=== PATIENT | female | born 1995 | race African-American/Black ===

== ENCOUNTER 2021-08-13 23:05 | Emergency (ER) | payer OTHER, SELFPAY ==
--- NOTE | ~2021-08-13 | US_ITS ---
EXAMINATION: US OBSTETRICAL ULTRASOUND CLINICAL INFORMATION: Positive . Pelvic pain. COMPARISON: None. LMP: 05/30/2021. Gestational age by maternal dates is 10 weeks 6 days. Estimated date of delivery by maternal dates is 03/06/2022. TECHNIQUE: Transabdominal sonographic evaluation of the pelvis. FINDINGS: There is a single intrauterine gestational sac with visible yolk sac, embryo/fetus, and cardiac activity. Small subchorionic hemorrhage measuring 1.5 x 1 x 0.7 cm. HR: 165 beats per minute. CRL (crown rump length): 2.28 cm (9 weeks 0 days +/- 4 days). RAFAEL (estimated date of delivery): 03/19/2022 +/- 4 days. MATERNAL ADNEXA: The right maternal ovary measures 3.5 x 2.2 x 3 cm. 2.5 cm corpus luteal cyst. The left maternal ovary measures 3.7 x 1.7 x 2.8 cm. There is no significant maternal adnexal mass. No maternal pelvic ascites. US/US OB <= 14 weeks fetus IMPRESSION: 1. Single intrauterine gestation with ultrasound gestational age of 9 weeks 0 days +/- 4 days. 2. Estimated date of delivery is 03/19/2022 +/- 4 days. 3. Small subchorionic hemorrhage noted.
[2021-08-13 23:53] VITALS: BP 97/45; PULSE 63; RESP 18; TEMP 36.7; O2SAT 98; BMI 31.1
--- NOTE | 2021-08-14 00:57 | ED.PREGNANCY ---
HPI - General Chief complaint: Vaginal Bleeding Stated complaint: 3months with pressure Time Seen by Provider: 08/13/21 23:40 Source: patient Mode of arrival: ambulatory History of Present Illness HPI Narrative: 26-year-old female , LMP 05/31 and has not been evaluated by an lead manufacturing engineer at this time who presents with lower abdominal/pelvic cramping for the past week and a half without associated fever, chills, nausea, vomiting, or diarrhea but states that she has had urinary frequency and some burning. She otherwise denies any vaginal discharge or vaginal bleeding. Related Data Previous Rx's Medication Instructions Recorded nitrofurantoin 100 mg PO Q12H 7 days #14 caps 08/14/21 monohydrate/macrocrystals 100 mg capsule (Macrobid) Allergies Allergy/AdvReac Type Severity Reaction Status Date / Time penicillin V Allergy Unknown Verified 09/25/16 00:00 Penicillins [PENICILLINS] Allergy Unknown HIVES Unverified 10/23/19 16:44 Sulfa (Sulfonamide Allergy Unknown UNKNOWN Unverified 10/23/19 16:44 Antibiotics) [SULFA (SULFONAMIDE ANTIBIOTICS)] COD FISH Allergy Unknown RASH Uncoded 10/23/19 16:44 Review of Systems Review of Systems: Pertinent positives and negatives as stated in HPI 10 point review systems otherwise negative. [facility] Past Medical History Source: nursing notes reviewed Social History Social History Advance Directives: No Physical Exam Vital Signs: Vital Signs: Last Vital Signs Temp 98.1 F 08/13/21 23:53 Pulse 63 08/13/21 23:53 Resp 18 08/13/21 23:53 BP 97/45 L 08/13/21 23:53 Pulse Ox 98 08/13/21 23:53 O2 Del Method 08/13/21 23:53 BMI result Body Mass Index 31.1 VITAL SIGNS: Reviewed. GENERAL: Well developed, well nourished, in no acute distress. HEAD: Normocephalic/atraumatic EYES: PERRLA, EOMI EARS: Ext canals without abnormality OROPHARYNX: no oral lesions noted, posterior pharynx clear LUNGS: Normal breath sounds. No adventitious sounds or accessory muscle use. SpO2<98> CARDIOVASCULAR: Regular rate and rhythm without noted murmurs ABDOMEN: Soft, non-tender, non-distended with bowel sounds. MUSCULOSKELETAL: No tenderness, deformities, or effusions noted on gross inspection. EXTREMITIES: No cyanosis, clubbing or edema. SKIN: Inspection of the skin reveals no rashes NEUROLOGIC: Alert and oriented x 4. Strength and sensation to light touch were grossly intact x 4. Course Course Course Narrative: 26-year-old female with history and clinical presentation suggestive of possible UTI, lower clinical suspicion for ectopic but will rule this out. Review of all investigations demonstrates normal OB ultrasound with IUP, small subchorionic hemorrhage, and patient does have a UTI for which she received initial antibiotics. MDM - OB/Uterine Contractions Lab Data Result diagrams: 08/14/21 01:05 08/14/21 01:05 Labs: Lab Results 08/14/21 08/14/21 08/14/21 Range/Units 01:05 01:05 01:05 WBC 9.2 (4.8-10.8) X10*3/uL RBC 3.93 L (4.20-5.50) X10*6/uL Hgb 12.2 (12.0-16.0) g/dl Hct 35.5 L (37.0-47.0) % MCV 90.3 (80.0-98.0) fL MCH 31.0 (27.0-33.0) pg MCHC 34.4 (31.0-35.0) g/dl RDW 11.9 (11.0-16.0) % Plt Count 285 (160-400) X10*3/uL MPV 10.1 (9.4-12.3) fL Immature Gran % (Auto) 0.3 (0.0-0.4) % Neut % (Auto) 78.7 H (45-73) % Lymph % (Auto) 13.4 L (20-40) % [place] % (Auto) 6.3 (2-11) % Eos % (Auto) 1.0 (0-4) % Baso % (Auto) 0.3 (0-2) % Lymph # (Auto) 1.2 (1.2-4.9) X10*3/uL [place] # (Auto) 0.6 (0.1-1.2) X10*3/uL Eos # (Auto) 0.1 (0.0-0.4) X10*3/uL Baso # (Auto) 0.0 (0.0-0.2) X10*3/uL Abs Immat Gran (auto) 0.03 (0.00-0.03) X10*3/uL Absolute Neuts (auto) 7.2 (2.0-8.3) x10*3/uL Absolute Nucleated RBC 0.000 (0.0-0.012) X10*3/uL Nucleated RBC % (auto) 0.0 (0.0-0.2) /100WBC Sodium 135 (135-145) mmol/L Potassium 4.0 (3.3-5.1) mmol/L Chloride 102 (96-108) mmol/L Carbon Dioxide 27 (22-29) mmol/L Anion Gap 10 L (12-20) BUN 6 L (9-16) mg/dL Creatinine 0.71 (0.5-1.4) mg/dL Estim Creat Clear Calc 116.5 Estimated GFR > 60 Random Glucose 116 H (60-115) mg/dL Calcium 9.4 (8.4-10.2) mg/dL Total Bilirubin < 0.2 (0.0-1.0) mg/dL AST 19 (5-31) U/L ALT 13 (0-31) U/L Alkaline Phosphatase 51 (39-117) U/L Total Protein 6.7 (6.5-8.0) g/dL Albumin 3.9 (3.5-5.0) g/dL Beta HCG, Quant 53350 mIU/mL Urine Color DK YELLOW Urine Appearance HAZY Urine pH 6.5 (5.0-8.0) Ur Specific [place] 1.025 (1.005-1.025) Urine Protein NEG (NEG-TRACE) MG/DL Urine Glucose (UA) 250 H (NEG) MG/DL Urine Ketones NEG (NEG) MG/DL Urine Blood NEG (NEG) Urine Nitrite POS H (NEG) Ur Leukocyte Esterase NEG (NEG) Urine RBC 0 (0) /HPF Urine WBC 0-2 (0-4) /HPF Ur Squamous Epith Cells 2+ /LPF Urine Bacteria 4+ /LPF Urine Test (NEGATIVE) 08/14/21 Range/Units 01:05 WBC (4.8-10.8) X10*3/uL RBC (4.20-5.50) X10*6/uL Hgb (12.0-16.0) g/dl Hct (37.0-47.0) % MCV (80.0-98.0) fL MCH (27.0-33.0) pg MCHC (31.0-35.0) g/dl RDW (11.0-16.0) % Plt Count (160-400) X10*3/uL MPV (9.4-12.3) fL Immature Gran % (Auto) (0.0-0.4) % Neut % (Auto) (45-73) % Lymph % (Auto) (20-40) % [place] % (Auto) (2-11) % Eos % (Auto) (0-4) % Baso % (Auto) (0-2) % Lymph # (Auto) (1.2-4.9) X10*3/uL [place] # (Auto) (0.1-1.2) X10*3/uL Eos # (Auto) (0.0-0.4) X10*3/uL Baso # (Auto) (0.0-0.2) X10*3/uL Abs Immat Gran (auto) (0.00-0.03) X10*3/uL Absolute Neuts (auto) (2.0-8.3) x10*3/uL Absolute Nucleated RBC (0.0-0.012) X10*3/uL Nucleated RBC % (auto) (0.0-0.2) /100WBC Sodium (135-145) mmol/L Potassium (3.3-5.1) mmol/L Chloride (96-108) mmol/L Carbon Dioxide (22-29) mmol/L Anion Gap (12-20) BUN (9-16) mg/dL Creatinine (0.5-1.4) mg/dL Estim Creat Clear Calc Estimated GFR Random Glucose (60-115) mg/dL Calcium (8.4-10.2) mg/dL Total Bilirubin (0.0-1.0) mg/dL AST (5-31) U/L ALT (0-31) U/L Alkaline Phosphatase (39-117) U/L Total Protein (6.5-8.0) g/dL Albumin (3.5-5.0) g/dL Beta HCG, Quant mIU/mL Urine Color Urine Appearance Urine pH (5.0-8.0) Ur Specific [place] (1.005-1.025) Urine Protein (NEG-TRACE) MG/DL Urine Glucose (UA) (NEG) MG/DL Urine Ketones (NEG) MG/DL Urine Blood (NEG) Urine Nitrite (NEG) Ur Leukocyte Esterase (NEG) Urine RBC (0) /HPF Urine WBC (0-4) /HPF Ur Squamous Epith Cells /LPF Urine Bacteria /LPF Urine Test POSITIVE H (NEGATIVE) Discharge Plan Discharge Clinical Impression: Urinary tract infection affecting Patient Disposition: Home, Self-Care Instructions: (ED), Urinary Tract Infection in (ED) Additional Instructions: 1. Continue to drink plenty of fluids and take daily vitamins. 2. You have a UTI, please complete the entire course of antibiotics as prescribed. Recommend [id number] Tylenol as needed for pain control, at this time avoid all ibuprofen. 3. Keep your scheduled appointment with your OB. Return to the ER for worsening symptoms. ULTRASOUND 1. Single intrauterine gestation with ultrasound gestational age of? 9 weeks 0 days +/- 4 days. 2. Estimated date of delivery is 03/19/2022 +/- 4 days. 3. Small subchorionic hemorrhage noted. Prescriptions: New nitrofurantoin monohyd/m-cryst [Macrobid] 100 mg capsule 100 mg PO Q12H 7 Days Qty: 14 0RF Rx Instructions: must administer with a meal/food
[2021-08-14 01:15] LABS: MANUAL DIFF FLAG NO
[2021-08-14 01:16] LABS: UPreg QC Valid YES; Urine Pregnancy POSITIVE (NEGATIVE)
[2021-08-14 01:17] LABS: Appearance Urine HAZY; Color Urine DK YELLOW; Glucose Urine UA 250 MG/DL (NEG); Leukocyte Esterase Urine NEG (NEG); Nitrite Urine POS (NEG); PH 6.5 (5.0-8.0); Specific Gravity - Urine 1.025 (1.005-1.025); UACC Culture Trigger YES; Urine Blood NEG (NEG); Urine Ketones NEG (NEG); Urine Protein NEG (NEG-TRACE)
[2021-08-14 01:21] LABS: Bacteria Urine 4+ /LPF; Basophils Percent Auto 0.3 % (0-2); Eosinophils Absolute Auto 0.1 X10*3/uL (0.0-0.4); Hematocrit 35.5 % (37.0-47.0); Hemoglobin 12.2 g/dl (12.0-16.0); Imm Gran Abs Auto 0.03 X10*3/uL (0.00-0.03); Imm Gran Pct Auto 0.3 % (0.0-0.4); Lymphocytes Absolute Auto 1.2 X10*3/uL (1.2-4.9); Lymphocytes Percent Auto 13.4 % (20-40); Mean Corpuscular HGB Conc 34.4 g/dl (31.0-35.0); Mean Corpuscular Volume 90.3 fL (80.0-98.0); Mean Platelet Volume 10.1 fL (9.4-12.3); Monocytes Absolute Auto 0.6 X10*3/uL (0.1-1.2); Monocytes Percent Auto 6.3 % (2-11); Neutrophils Absolute Auto 7.2 x10*3/uL (2.0-8.3); Neutrophils Percent Auto 78.7 % (45-73); Platelet Count 285 X10*3/uL (160-400); RBC Urine 0 /HPF (0); Red Blood Count 3.93 X10*6/uL (4.20-5.50); Red Cell Distribution Width 11.9 % (11.0-16.0); Squamous Epithelial Cell Urine 2+ /LPF; WBC Urine 0-2 /HPF (0-4); White Blood Count 9.2 X10*3/uL (4.8-10.8)
[2021-08-14 01:40] LABS: Alanine Aminotransferase 13 U/L (0-31); Albumin Level 3.9 g/dL (3.5-5.0); Alkaline Phosphatase 51 U/L (39-117); Anion Gap 10 (12-20); Aspartate Amino Transferase 19 U/L (5-31); Bilirubin Total < 0.2 mg/dL (0.0-1.0); Blood Urea Nitrogen 6 mg/dL (9-16); Calcium 9.4 mg/dL (8.4-10.2); Carbon Dioxide 27 mmol/L (22-29); Chloride 102 mmol/L (96-108); Creatinine Clr Calc Pharmacy 116.5; Estimated Glomerular Filt Rate > 60; Glucose Random 116 mg/dL (60-115); Sodium 135 mmol/L (135-145); Total Protein 6.7 g/dL (6.5-8.0)
[2021-08-14 03:18] VITALS: BP 98/50; PULSE 65; RESP 18; TEMP 36.9; O2SAT 100
[2021-08-14] MEDS: Nitrofurantoin Monohyd/M-Cryst 100 MG CAPSULE PO (03:25)
== END 2021-08-14 03:19 | disposition home or self-care (01) ==
PROVIDERS: Emergency Provider Student in an Organized Health Care Education/Training Program
DX: N39.0 Urinary tract infection, site not specified (principal); O23.41 Unspecified infection of urinary tract in pregnancy, first trimester; O26.891 Other specified pregnancy related conditions, first trimester; R10.30 Lower abdominal pain, unspecified; Z3A.09 9 weeks gestation of pregnancy
CPT/HCPCS: 36415; 76801; 80053; 81001; 81025; 84702; 85025; 87086; 87088; 87186; 99283; 99284

== ENCOUNTER 2021-11-01 13:42 | Emergency (ER) | payer OTHER, SELFPAY ==
[2021-11-01 14:13] VITALS: BP 111/47; PULSE 77; RESP 18; TEMP 36.9; O2SAT 98; BMI 32.9
[2021-11-01 14:38] LABS: Basophils Percent Auto 0.1 % (0-2); Eosinophils Absolute Auto 0.1 X10*3/uL (0.0-0.4); Eosinophils Percent Auto 0.9 % (0-4); Hematocrit 31.6 % (37.0-47.0); Hemoglobin 10.5 g/dl (12.0-16.0); Imm Gran Abs Auto 0.04 X10*3/uL (0.00-0.03); Imm Gran Pct Auto 0.5 % (0.0-0.4); Lymphocytes Absolute Auto 1.1 X10*3/uL (1.2-4.9); Lymphocytes Percent Auto 13.6 % (20-40); MANUAL DIFF FLAG NO; Mean Corpuscular HGB Conc 33.2 g/dl (31.0-35.0); Mean Corpuscular Hemoglobin 31.2 pg (27.0-33.0); Mean Corpuscular Volume 93.8 fL (80.0-98.0); Mean Platelet Volume 10.6 fL (9.4-12.3); Monocytes Absolute Auto 0.6 X10*3/uL (0.1-1.2); Monocytes Percent Auto 7.1 % (2-11); Neutrophils Absolute Auto 6.2 x10*3/uL (2.0-8.3); Neutrophils Percent Auto 77.8 % (45-73); Platelet Count 227 X10*3/uL (160-400); Red Blood Count 3.37 X10*6/uL (4.20-5.50); Red Cell Distribution Width 12.9 % (11.0-16.0); White Blood Count 7.9 X10*3/uL (4.8-10.8)
[2021-11-01 14:51] LABS: Anion Gap 15 (12-20); Blood Urea Nitrogen 6 mg/dL (9-16); Calcium 8.6 mg/dL (8.4-10.2); Carbon Dioxide 20 mmol/L (22-29); Chloride 107 mmol/L (96-108); Creatinine Clr Calc Pharmacy 144.2; Estimated Glomerular Filt Rate > 60; Glucose Random 83 mg/dL (60-115); Potassium 4.1 mmol/L (3.3-5.1); Sodium 138 mmol/L (135-145)
--- NOTE | 2021-11-01 22:48 | PC.NURSE ---
per registration, pt LWT at 5pm however returned and required to re-entered/re-registered in the system. raw products director to remove this profile as pt with new triage in the WR.
== END 2021-11-01 17:00 | disposition left against medical advice (07) ==
PROVIDERS: Emergency Provider Emergency Medicine
DX: R10.9 Unspecified abdominal pain (principal); Z79.899 Other long term (current) drug therapy
CPT/HCPCS: 36415; 80048; 85025; 99281; 99283

== ENCOUNTER 2021-11-01 22:26 | Emergency (ER) | payer OTHER, SELFPAY ==
[2021-11-01 22:35] VITALS: BP 124/48; PULSE 79; RESP 17; TEMP 36.8; O2SAT 99; BMI 32.9
[2021-11-02 02:08] VITALS: BP 110/42; PULSE 64; RESP 17; TEMP 36.5; O2SAT 99
[2021-11-02 02:22] LABS: Appearance Urine Clear; Color Urine Yellow; Glucose Urine UA Negative (Negative); Leukocyte Esterase Urine Negative (Negative); Nitrite Urine Negative (Negative); Urine Blood Negative (Negative); Urine Ketones Negative (Negative); Urine Protein Negative (Neg-Trace)
== END 2021-11-02 04:45 | disposition left against medical advice (07) ==
PROVIDERS: Emergency Provider Emergency Medicine
DX: R25.2 Cramp and spasm (principal); Z79.899 Other long term (current) drug therapy
CPT/HCPCS: 81003; 99282

== ENCOUNTER 2021-11-06 14:25 | Emergency (ER) | payer OTHER, SELFPAY ==
[2021-11-06 14:35] VITALS: BP 116/66; PULSE 83; RESP 16; TEMP 36.3; O2SAT 95; BMI 33.3
[2021-11-06 15:10] LABS: Appearance Urine Cloudy; Color Urine Yellow; Glucose Urine UA Negative (Negative); Leukocyte Esterase Urine Small (1+) (Negative); Nitrite Urine Positive (Negative); Specific Gravity - Urine 1.015 (1.005-1.025); UMIC TRIGGER UACC YES; UPreg QC Valid YES; Urine Blood Negative (Negative); Urine Ketones Negative (Negative); Urine Pregnancy POSITIVE (NEGATIVE); Urine Protein Negative (Neg-Trace)
[2021-11-06 15:43] LABS: Bacteria Urine 1+ (None Seen); Hyaline Casts Urine 0-2 /LPF (0-2); Other Crystals Urine Present; RBC Urine 0-2 /HPF (0-2); UACC Culture Trigger YES; WBC Urine 0-5 /HPF (0-5)
--- NOTE | 2021-11-06 16:28 | ED_ITS ---
HPI - General Adult General Chief complaint: Abdominal Pain Stated complaint: 5 Months , stomach cramps Time Seen by Provider: 11/06/21 16:28 Source: patient Mode of arrival: ambulatory Limitations: no limitations History of Present Illness HPI narrative: Patient is a 26 year old female presenting to the emergency department today requesting to have an ultrasound of her baby. Patient states that yesterday she had some abdominal cramping and very minimal spotting. Patient denies any current dizziness, lightheadedness, abdominal pain, nausea, vomiting, fever, chills, blurry vision, double vision, loss of vision, chest pain, difficulty breathing, shortness of breath, back pain, night sweats, pain with urination, increased urinary frequency, increased urinary urgency, blood in her urine or stool, vaginal bleeding, vaginal discharge, syncope or a near syncopal episode, recent trauma or falls, bowel incontinence, bladder incontinence, bowel retention, bladder retention, or any other complaints at this time. Patient states that she is 5 months and has her first OB appointment in 10 days but wants to see how the baby is doing now. Severity scale (1-10): 1 Relieving factors: none Exacerbating factors: none Associated symptoms: denies other symptoms Treatments prior to arrival: none Related Data Previous Rx's Medication Instructions Recorded nitrofurantoin 100 mg PO Q12H 7 days #14 caps 08/14/21 monohydrate/macrocrystals 100 mg capsule (Macrobid) Allergies Allergy/AdvReac Type Severity Reaction Status Date / Time penicillin V Allergy Unknown Unknown Verified 11/06/21 14:40 Penicillins [PENICILLINS] Allergy Unknown HIVES Unverified 11/06/21 14:40 Sulfa (Sulfonamide Allergy Unknown UNKNOWN Unverified 11/06/21 14:40 Antibiotics) [SULFA (SULFONAMIDE ANTIBIOTICS)] COD FISH Allergy Unknown RASH Uncoded 11/06/21 14:40 Review of Systems Constitutional: Constitutional: Reports no additional constitutional complaints, Denies chills, Denies fever(s) and Denies night sweats Eyes: Eyes: Reports no additional eye complaints, Denies blurry vision, Denies change in vision, Denies diplopia, Denies eye discharge, Denies loss of vision and Denies eye pain ENT: Denies dizziness Cardiovascular: Cardiovascular: Reports no additional cardiovascular complaints, Denies chest pain, Denies lightheadedness, Denies Loss of Consciousness and Denies dyspnea Respiratory: Respiratory: Reports no additional respiratory complaints and Denies dyspnea Gastrointestinal: Gastrointestinal: Reports no additional gastrointestinal complaints, Denies abdominal pain, Denies melena, Denies hematochezia, Denies change in bowel habits and Denies change in stool character Genitourinary: Genitourinary: Denies hematuria, Denies urinary frequency, Denies dysuria, Denies urinary incontinence, Denies urinary hesitancy and Denies urinary urgency Musculoskeletal: Musculoskeletal: Reports no additional musculoskeletal complaints, Denies numbness and Denies tingling Neurologic: Denies dizziness, Denies loss of vision, Denies numbness and Denies tingling Psychiatric: Psychiatric: Reports no additional psychiatric complaints Endocrine: Endocrine: Reports no additional endocrine complaints Hematologic/Lymphatic: Hematologic/Lymphatic: Reports no additional hematologic/lymphatic complaints Allergic/Immunologic: Allergic/Immunologic: Reports no additional allergic/immunologic complaints PMFSH Past Medical History Attestation statement: The following information was validated with the patient. Source: old records reviewed Social History Social History Advance Directives: No Advance Directives Information Provided: Yes Physical Exam ED Vital Signs: Vital Signs - 24 hr 11/06/21 14:35 Temperature 97.3 F Pulse Rate 83 Respiratory Rate 16 Blood Pressure 116/66 Pulse Oximetry 95 Oxygen Delivery Method Room Air BMI result Body Mass Index 33.3 Const General: cooperative, no acute distress, alert and awake Nutritional Appearance: well nourished Orientation/consciousness: patient oriented x3 Limitations: no limitations [facility] Head: Yes normal to inspection and Yes atraumatic Ears: hearing grossly normal bilaterally and external ears normal General nose exam: Normal external nose present, no nasal discharge noted and no epistaxis Face and sinus: Yes normal facial exam, No abrasion and No laceration Mouth: Normal oral and palatal mucosa present, no drooling and no muffled voice Eyes General: appearance normal, both eyes and all related structures Periorbital: periorbital findings normal Eyelids: Yes eyelids normal Conjunctivae: conjunctivae normal Pupils: Equal, round and reactive pupils present EOM: EOMs intact bilaterally Neck Neck: Yes normal visual inspection, Yes full ROM and Yes no lymphadenopathy Chest Chest palpation & inspection: normal inspection of the chest Resp Effort & Inspection: normal respiratory effort and able to speak in complete sentences Auscultation: clear to auscultation bilaterally Cardio Rate: regular rate Rhythm: regular rhythm GI Inspection: Yes normal to inspection Neuro General: patient oriented x3 and moves all extremities Cranial nerves: Yes Equal, round and reactive pupils present Cognition (Neuro): normal cognition Motor exam (neuro): 5/5 motor strength present throughout Sensory Exam: Normal double simultaneous stimulation for sensation Coordination: [id number] test normal Extrem General: Yes normal to inspection, Yes full ROM and Yes capillary refill normal Psych Appearance: grossly normal Mental Status: mental status grossly normal Affect: normal affect Attitude: cooperative Thought process: Normal thought process present Thought content: Normal thought content present Insight: Good insight present (Psych) Medical Decision Making MDM Narrative Medical decision making narrative: Patient is a 26 year old female presenting to the emergency department today requesting an OB ultrasound. Patient's physical exam was unremarkable. Patient's urine showed no acute process. Patient eloped from the department prior to having her US down or allowing me to explain all results to her. Medical Records Medical records reviewed: Yes I reviewed the patient's medical records. Lab Data Lab results reviewed: Yes I reviewed the patient's lab results. Labs: Lab Results 11/06/21 11/06/21 Range/Units 14:55 14:55 Urine Color Yellow Urine Appearance Cloudy Urine pH 8.0 (5.0-9.0) Ur Specific [place] 1.015 (1.005-1.025) Urine Protein Negative (Neg-Trace) mg/dL Urine Glucose (UA) Negative (Negative) mg/dL Urine Ketones Negative (Negative) mg/dL Urine Blood Negative (Negative) Urine Nitrite Positive H (Negative) Ur Leukocyte Esterase Small (1+) H (Negative) Urine RBC 0-2 (0-2) /HPF Urine WBC 0-5 (0-5) /HPF Ur Squamous Epith Cells 3-5 (0-2) /HPF Other Crystals Present Urine Bacteria 1+ (None Seen) Hyaline Casts 0-2 (0-2) /LPF Urine Test POSITIVE H (NEGATIVE) Discharge Plan Discharge Clinical Impression: Patient Disposition: Elopement Prescriptions: No Action nitrofurantoin monohyd/m-cryst [Macrobid] 100 mg capsule 100 mg PO Q12H 7 Days Qty: 14 0RF Rx Instructions: must administer with a meal/food Interventions: ED Discharge Assessment Last Done: 11/06/21 16:37 Discharge Date/Time: 11/06/21 16:37
--- NOTE | 2021-11-06 16:35 | PC.NURSE ---
Pt eloped from EM 2. Seen by Sony SMITH. When asked to stop and wait for evaulation, pt kept walking out door.
[2021-11-07 02:35] LABS: CT PCR NOT DETECTED (Not Detect.); NG PCR NOT DETECTED (Not Detect.)
== END 2021-11-06 16:37 | disposition left against medical advice (07) ==
PROVIDERS: Emergency Provider Internal Medicine
DX: O26.92 Pregnancy related conditions, unspecified, second trimester (principal); Z3A.20 20 weeks gestation of pregnancy; Z79.899 Other long term (current) drug therapy
CPT/HCPCS: 81001; 81025; 87086; 87491; 87591; 99282; 99283

== ENCOUNTER 2022-01-25 21:09 | Emergency (ER) | payer OTHER, SELFPAY ==
[2022-01-25 21:22] VITALS: BP 111/61; PULSE 103; RESP 20; TEMP 36.9; BMI 32.0
[2022-01-25 21:45] VITALS: BP 91/54; PULSE 108; RESP 18; TEMP 36.8; O2SAT 100
[2022-01-25 21:50] VITALS: O2SAT 100
[2022-01-25 22:11] LABS: Strep A Nucleic Acid Positive (Negative)
[2022-01-25 22:13] LABS: COVID-19 Test Positive (Negative); IDNOW Serial# 16C4AD1C
--- NOTE | 2022-01-25 22:25 | ED_ITS ---
HPI - URI/Sore Throat General Chief Complaint: Upper Respiratory Symptoms Stated Complaint: 7 mos preg. flu/ covid symptoms Time Seen by Provider: 01/25/22 21:37 Source: patient Mode of arrival: ambulatory Limitations: no limitations History of Present Illness HPI Narrative: Patient is a 26-year-old female who presents to emergency department for evaluation of viral type symptoms reporting cough, body aches, fever, chills, sore throat, headache with symptom onset 2 days ago. She states she is currently 7 months . Denies dizziness, lightheadedness, vision changes, neck pain, neck stiffness, chest pain, shortness of breath, difficulty breathing, abdominal pain/cramping, pelvic pain, abnormal vaginal discharge/vaginal bleeding. Denies urinary frequency/urgency, dysuria. Related Data Previous Rx's Medication Instructions Recorded nitrofurantoin 100 mg PO Q12H 7 days #14 caps 08/14/21 monohydrate/macrocrystals 100 mg capsule (Macrobid) nitrofurantoin 100 mg PO BID 7 days #14 caps 11/10/21 monohydrate/macrocrystals 100 mg capsule (Macrobid) cephalexin 500 mg capsule 500 mg PO BID #20 caps 01/25/22 Allergies Allergy/AdvReac Type Severity Reaction Status Date / Time penicillin V Allergy Unknown Unknown Verified 11/06/21 14:40 Penicillins [PENICILLINS] Allergy Unknown HIVES Unverified 11/06/21 14:40 Sulfa (Sulfonamide Allergy Unknown UNKNOWN Unverified 11/06/21 14:40 Antibiotics) [SULFA (SULFONAMIDE ANTIBIOTICS)] COD FISH Allergy Unknown RASH Uncoded 11/06/21 14:40 Review of Systems Review of Systems: Constitutional: Positive fever. Positive chills. No weakness. Positive fatigue. ENT/ Mouth: No Ear Pain, positive Nasal Congestion, positive sore throat, No Rhinorrhea, No Swallowing Difficulty Skin: No rash or itching. Cardiovascular: No chest pain. No palpitations. Respiratory: No shortness of breath. Positive cough. No sputum production. Gastrointestinal: No nausea. No vomiting. No diarrhea. No abdominal pain. Genitourinary: No burning micturition. No urinary frequency. Neurologic: Positive headache. No dizziness. No syncope. No numbness or tingling in the extremities. Musculoskeletal: No muscle pain. No back pain. No joint pain or stiffness. Yes all other systems are reviewed and are negative [facility] Past Medical History Attestation statement: The following information was validated with the patient. Source: old records reviewed Social History Social History Alcohol intake: never Smoked in Last 30 Days: No Use of substances other than those prescribed or required for medical reasons: No Advance Directives: No Advance Directives Information Provided: No Patient : Yes Physical Exam Vital Signs: Vital Signs: Last Vital Signs Temp 98.3 F 01/25/22 21:45 Pulse 108 H 01/25/22 21:45 Resp 18 01/25/22 21:45 BP 91/54 L 01/25/22 21:45 Pulse Ox 100 01/25/22 21:50 O2 Del Method 01/25/22 21:50 BMI result Body Mass Index 32.0 Vital signs have been reviewed as normal and appeared to be correct. Blood pressure normal.? Heart rate normal.? Respiration rate normal. Temperature normal.? Oxygen saturation normal. Appearance: Alert.?Oriented to person, place and time. No acute distress.?Normal affect. Eyes: Pupils equal, round and reactive to light.? ENT: TM normal bilaterally. Pharynx erythematous without exudates or tonsillar hypertrophy? Neck: Normal inspection.? Neck supple.??No cervical adenopathy CVS: Heart sounds normal. Normal heart rate and rhythm.? Pulses normal.?? Respiratory: No respiratory distress.? Lung sounds clear to auscultation bilate rally?? Abdomen: Round and non-tender. Normoactive bowel sounds. Skin: Skin warm and dry.? Normal skin color.? ? Extremities: No lower extremity edema.? Neuro: Moves all extremities spontaneously. Sensation intact bilaterally. No motor deficits. Ambulates with normal steady gait. Course Course Course Narrative: Patient is a 26-year-old female G3 T1 L1, currnetly 31 weeks with no reported past medical history, presenting for evaluation of upper respiratory symptoms. COVID-19 testing positive, discussed emergency use authorization for Paxlovid the potential side effects, and she declines treatment. Influenza testing negative. Strep testing positive. At this time history and physical exam not consistent with peritonsillar abscess, retropharyngeal abscess, pneumonia. No nuchal rigidity, no meningismus, not consistent with meningitis. Overall Well-appearing, nontoxic, afebrile, no tachypnea/hypoxia. Mild tachycardia. Speaking clear full sentences, ambulatory with steady gait. Discussed conservative treatment including rest, hydration, Tylenol as needed for fever and body aches, saline nasal spray, humidifier, prescription for cephalexin sent to pharmacy for strep given penicillin allergy. Advised to follow-up with primary care provider as needed, discussed reasons to return back to the emergency department. All questions were answered. Patient discharged home in stable condition. Provided with a return to work note. Medical Decision Making Lab Data [facility] Lab Attestation statement: I reviewed the patient's lab results. Labs: Lab Results 01/25/22 01/25/22 Range/Units 21:50 21:50 COVID-19 (AFSHAN) Positive A (Negative) COVID-19 Clin Com See Note S. pyogenes GrpA ANUPAMA Positive A (Negative) Discharge Plan Discharge Clinical Impression: Acute streptococcal pharyngitis, COVID-19 Patient Disposition: Home, Self-Care Instructions: Strep Throat (ED), COVID-19 (Coronavirus Disease 2019) (ED) Additional Instructions: As discussed, your COVID-19 test is positive. You also have a bacterial infection in your throat; strep throat. A prescription for antibiotic was sent to your pharmacy, please be certain to complete this entire course. Be sure to rest, drink plenty of fluids, Tylenol can be used as needed for fever or pain, eat small frequent meals. Please contact your primary care provider to arrange for follow-up. Prescriptions: New cephalexin 500 mg capsule 500 mg PO BID Qty: 20 0RF No Action nitrofurantoin monohyd/m-cryst [Macrobid] 100 mg capsule 100 mg PO Q12H 7 Days Qty: 14 0RF Rx Instructions: must administer with a meal/food nitrofurantoin monohyd/m-cryst [Macrobid] 100 mg capsule 100 mg PO BID 7 Days Qty: 14 0RF Rx Instructions: must administer with a meal/food Referrals: Physician,Unknown J [Primary Care Provider] - Stand Alone Forms: Work/School Release
[2022-01-25 22:31] LABS: IDNOW Serial# 08D9AD1C; Influenza A Negative (Negative); Influenza B2 Negative (Negative)
[2022-01-25] MEDS: cephALEXin 500 MG CAPSULE PO (22:37)
[2022-01-25 22:38] VITALS: BP 98/50; PULSE 95; RESP 18; O2SAT 98
== END 2022-01-25 23:05 | disposition home or self-care (01) ==
PROVIDERS: Emergency Provider Emergency Medicine
DX: O98.513 Other viral diseases complicating pregnancy, third trimester (principal); U07.1 COVID-19; J02.0 Streptococcal pharyngitis; Z3A.31 31 weeks gestation of pregnancy
CPT/HCPCS: 36415; 87502; 87635; 87651; 99283; 99284

== ENCOUNTER 2022-01-31 20:26 | Emergency (ER) | payer OTHER, SELFPAY ==
[2022-01-31 21:09] VITALS: BP 109/50; PULSE 76; RESP 18; TEMP 36.7; O2SAT 97; BMI 32.0
--- NOTE | 2022-01-31 21:09 | ED_ITS ---
HPI - General Adult General Chief complaint: Nausea/Vomiting/Diarrhea <LUIS Bryant - Last Filed: 01/31/22 21:13> Stated complaint: Vomiting/7mos preg <LUIS Bryant - Last Filed: 01/31/22 21:13> Time Seen by Provider: 02/01/22 02:01 <LUIS Bryant - Last Filed: 01/31/22 21:13> Source: patient <Brenda Martinez MD - Last Filed: 02/01/22 04:45> Mode of arrival: ambulatory <Brenda Martinez MD - Last Filed: 02/01/22 04:45> Limitations: no limitations <Brenda Martinez MD - Last Filed: 02/01/22 04:45> History of Present Illness HPI narrative: 26-year-old female 7 and half months with no complication as reported by the patient, patient tested positive for COVID 2 days ago been having sore throat, nausea, vomiting, unable to hydrate herself feels dehydrated, otherwise patient declined any abdominal contraction, no v aginal bleeding or discharge. <Brenda Martinez MD - Last Filed: 02/01/22 04:45> Related Data Home medications: Previous Rx's Medication Instructions Recorded nitrofurantoin 100 mg PO Q12H 7 days #14 caps 08/14/21 monohydrate/macrocrystals 100 mg capsule (Macrobid) nitrofurantoin 100 mg PO BID 7 days #14 caps 11/10/21 monohydrate/macrocrystals 100 mg capsule (Macrobid) cephalexin 500 mg capsule 500 mg PO BID #20 caps 01/25/22 <LUIS Bryant - Last Filed: 01/31/22 21:13> Allergies/adverse reactions: Allergies Allergy/AdvReac Type Severity Reaction Status Date / Time penicillin V Allergy Unknown Unknown Verified 11/06/21 14:40 Penicillins [PENICILLINS] Allergy Unknown HIVES Unverified 11/06/21 14:40 Sulfa (Sulfonamide Allergy Unknown UNKNOWN Unverified 11/06/21 14:40 Antibiotics) [SULFA (SULFONAMIDE ANTIBIOTICS)] COD FISH Allergy Unknown RASH Uncoded 11/06/21 14:40 <LUIS Bryant - Last Filed: 01/31/22 21:13> Review of Systems 2 Review of Systems: All other systems are reviewed and are negative Constitutional: Reports as per HPI and Reports no additional constitutional complaints Eyes: Reports as per HPI and Reports no additional eye complaints Reports system reviewed and no additional complaints, except as documented Cardiovascular: Reports as per HPI and Reports no additional cardiovascular complaints Respiratory: Reports as per HPI and Reports no additional respiratory complaints Gastrointestinal: Reports as per HPI and Reports no additional gastrointestinal complaints Genitourinary: Reports no additional female genitourinary complaints Musculoskeletal: Reports no additional musculoskeletal complaints Skin/Breast: Reports system reviewed and no additional complaints, except as docu Psychiatric: Reports no additional psychiatric complaints Endocrine: Reports no additional endocrine complaints Hematologic/Lymphatic: Reports no additional hematologic/lymphatic complaints Allergic/Immunologic: Reports no additional allergic/immunologic complaints Reports system reviewed and no additional complaints, except as documented and Reports Abnormal speech present <Brenda Martinez MD - Last Filed: 02/01/22 04:45> [facility] Social History Social History: Social History Alcohol intake: never Advance Directives: No Advance Directives Information Provided: No <LUIS Bryant - Last Filed: 01/31/22 21:13> Physical Exam ED Vital Signs: Vital Signs - 24 hr 01/31/22 21:09 02/01/22 00:29 02/01/22 03:15 Temperature 98.1 F 98.0 F 98.2 F Pulse Rate 76 62 60 Respiratory Rate 18 18 18 Blood Pressure 109/50 L 118/62 111/60 Pulse Oximetry 97 100 98 Oxygen Delivery Method Room Air Room Air Room Air BMI result Body Mass Index 32.0 <LUIS Bryant - Last Filed: 01/31/22 21:13> Vital Signs - 24 hr 01/31/22 21:09 02/01/22 00:29 02/01/22 03:15 Temperature 98.1 F 98.0 F 98.2 F Pulse Rate 76 62 60 Respiratory Rate 18 18 18 Blood Pressure 109/50 L 118/62 111/60 Pulse Oximetry 97 100 98 Oxygen Delivery Method Room Air Room Air Room Air BMI result Body Mass Index 32.0 vital signs have been reviewed as appeared to be correct. Blood pressure normal. Heart rate normal. Respiration rate normal. Temperature normal. Oxygen saturation normal. <Brenda Martinez MD - Last Filed: 02/01/22 04:45> Appearance: Alert. Oriented X3. No acute distress. Head: Normal external exam. Normocephalic. Atraumatic. No Barcenas signs noted. No raccoon eyes noted Eyes: PERRLA. EOMI. Conjunctiva and sclera normal. Eyelids normal. ENT: TM's Normal. Pharynx normal. Uvula midline. Moist mucous membranes. No trismus noted. No drooling noted. No muffled voice noted. Neck: Normal inspection. Neck supple. FROM. No adenopathy. Thyroid Normal. No meningeal signs. No neck mass noted. CVS: Normal heart rate and rhythm. Heart sound normal. No murmurs noted. Pulses normal throughout. Respiratory: No respiratory distress. Painless inspiration. Breath sounds normal. No wheezes/rales/rhonchi noted. Chest nontender. No accessory muscle usage noted or decreased air movement noted. Abdomen: Soft and nontender. Bowel sounds normal in all 4 quadrants. No distention noted. No organomegaly noted. No visible injury noted. Back: No CVA tenderness. Full range of motion noted. Skin: Skin warm and dry. Normal skin color. Normal skin turgor. No rashes/lesions/lacerations noted. Extremities: No lower extremity edema. Extremities exhibit normal range of motion. Extremities nontender. Neuro: Oriented X 3. Cranial nerve exam: II-XII are grossly intact No motor deficit. No sensory deficit. Reflexes normal. <Brenda Martinez MD - Last Filed: 02/01/22 04:45> Course Course Course Narrative: 2108 This is a 26 year old female presenting to the ED w/ nausea, vomiting, sore throat, abd pain, anorexia, malaise fatigue. Feels baby moving per usual. OBGYN out of [facility]/[place]. No compliations to date with . No vaginal bleeding or discharge. Known to be covid and strep +. Has not taken atbx for strep pharmacy wouldnt give it to her because they told her they sent her something shes allergic to PE: abdomen, VSS, normal pharynx Plan: labs, urine, viral test <LUIS Bryant - Last Filed: 01/31/22 21:13> Reevaluation(s) Reevaluation #1: 26-year-old female 7 and half months with no problem, presented with COVID symptoms for 2 days and she is positive for COVID unable to tolerate p.o. intake patient received IV Zofran time 1 and IV fluid hydration feels much better with energy and strength back able to tolerate p.o. intake. Will discharge <Brenda Martinez MD - Last Filed: 02/01/22 04:45> Time: 04:40 <Brenda Martinez MD - Last Filed: 02/01/22 04:45> Medications Administered Discontinued Medications Generic Name Dose Route Start Last Admin Trade Name Freq PRN Reason Stop Dose Admin Sodium Chloride 1,000 mls @ 999 mls/hr 02/01/22 02:24 02/01/22 02:39 Ns IV 02/01/22 03:24 999 mls/hr .Q1H1M ONE Administration Ondansetron HCl 4 mg 02/01/22 02:24 02/01/22 02:39 Ondansetron Hcl 4 Mg/2 Ml Vial IVPUSH 02/01/22 02:25 4 mg ONCE ONE Administration <LUIS Bryant - Last Filed: 01/31/22 21:13> Medications Administered Discontinued Medications Generic Name Dose Route Start Last Admin Trade Name Freq PRN Reason Stop Dose Admin Sodium Chloride 1,000 mls @ 999 mls/hr 02/01/22 02:24 02/01/22 02:39 Ns IV 02/01/22 03:24 999 mls/hr .Q1H1M ONE Administration Ondansetron HCl 4 mg 02/01/22 02:24 02/01/22 02:39 Ondansetron Hcl 4 Mg/2 Ml Vial IVPUSH 02/01/22 02:25 4 mg ONCE ONE Administration <Brenda Martinez MD - Last Filed: 02/01/22 04:45> Medical Decision Making Differential Diagnosis Differential Diagnoses: The differential diagnosis associated with the presentation includes ( complicated /gastritis/ viral infection/ dehydration.) <Brenda Martinez MD - Last Filed: 02/01/22 04:45> Lab Data [facility] Lab Attestation statement: I reviewed the patient's lab results. <Brenda Martinez MD - Last Filed: 02/01/22 04:45> Result Diagrams: : 01/31/22 21:33 01/31/22 21:32 <LUIS Bryant - Last Filed: 01/31/22 21:13> Labs: Lab Results 01/31/22 01/31/22 01/31/22 Range/Units 21:32 21:33 21:33 WBC 5.4 (4.8-10.8) X10*3/uL RBC 3.84 L (4.20-5.50) X10*6/uL Hgb 11.9 L (12.0-16.0) g/dl Hct 35.2 L (37.0-47.0) % MCV 91.7 (80.0-98.0) fL MCH 31.0 (27.0-33.0) pg MCHC 33.8 (31.0-35.0) g/dl RDW 12.4 (11.0-16.0) % Plt Count 210 (160-400) X10*3/uL MPV 11.0 (9.4-12.3) fL Immature Gran % (Auto) 0.2 (0.0-0.4) % Neut % (Auto) 74.6 H (45-73) % Lymph % (Auto) 16.8 L (20-40) % Stoddard % (Auto) 8.0 (2-11) % Eos % (Auto) 0.2 (0-4) % Baso % (Auto) 0.2 (0-2) % Lymph # (Auto) 0.9 L (1.2-4.9) X10*3/uL Stoddard # (Auto) 0.4 (0.1-1.2) X10*3/uL Eos # (Auto) 0.0 (0.0-0.4) X10*3/uL Baso # (Auto) 0.0 (0.0-0.2) X10*3/uL Abs Immat Gran (auto) 0.01 (0.00-0.03) X10*3/uL Absolute Neuts (auto) 4.0 (2.0-8.3) x10*3/uL Absolute Nucleated RBC 0.000 (0.0-0.012) X10*3/uL Nucleated RBC % (auto) 0.0 (0.0-0.2) /100WBC Sodium 137 (135-145) mmol/L Potassium 3.8 (3.3-5.1) mmol/L Chloride 108 (96-108) mmol/L Carbon Dioxide 23 (22-29) mmol/L Anion Gap 10 L (12-20) BUN 5 L (9-16) mg/dL Creatinine 0.64 (0.5-1.4) mg/dL Estim Creat Clear Calc 131.1 Estimated GFR > 60 Random Glucose 118 H (60-115) mg/dL Calcium 8.5 (8.4-10.2) mg/dL Magnesium 1.8 (1.6-2.6) mg/dL Total Bilirubin 0.3 (0.0-1.0) mg/dL AST 22 (5-31) U/L ALT 16 (0-31) U/L Alkaline Phosphatase 61 (39-117) U/L Total Protein 6.5 (6.5-8.0) g/dL Albumin 3.1 L D (3.5-5.0) g/dL Beta HCG, Quant 37172 mIU/mL Influenza Type A (PCR) NEGATIVE (Negative) Influenza Type B (PCR) NEGATIVE (Negative) RSV RNA Qual (PCR) NEGATIVE (Negative) SARS-CoV-2 RNA (RT-PCR) POSITIVE A (Negative) <LUIS Bryant - Last Filed: 01/31/22 21:13> Lab Results 01/31/22 01/31/22 01/31/22 Range/Units 21:32 21:33 21:33 WBC 5.4 (4.8-10.8) X10*3/uL RBC 3.84 L (4.20-5.50) X10*6/uL Hgb 11.9 L (12.0-16.0) g/dl Hct 35.2 L (37.0-47.0) % MCV 91.7 (80.0-98.0) fL MCH 31.0 (27.0-33.0) pg MCHC 33.8 (31.0-35.0) g/dl RDW 12.4 (11.0-16.0) % Plt Count 210 (160-400) X10*3/uL MPV 11.0 (9.4-12.3) fL Immature Gran % (Auto) 0.2 (0.0-0.4) % Neut % (Auto) 74.6 H (45-73) % Lymph % (Auto) 16.8 L (20-40) % Stoddard % (Auto) 8.0 (2-11) % Eos % (Auto) 0.2 (0-4) % Baso % (Auto) 0.2 (0-2) % Lymph # (Auto) 0.9 L (1.2-4.9) X10*3/uL Stoddard # (Auto) 0.4 (0.1-1.2) X10*3/uL Eos # (Auto) 0.0 (0.0-0.4) X10*3/uL Baso # (Auto) 0.0 (0.0-0.2) X10*3/uL Abs Immat Gran (auto) 0.01 (0.00-0.03) X10*3/uL Absolute Neuts (auto) 4.0 (2.0-8.3) x10*3/uL Absolute Nucleated RBC 0.000 (0.0-0.012) X10*3/uL Nucleated RBC % (auto) 0.0 (0.0-0.2) /100WBC Sodium 137 (135-145) mmol/L Potassium 3.8 (3.3-5.1) mmol/L Chloride 108 (96-108) mmol/L Carbon Dioxide 23 (22-29) mmol/L Anion Gap 10 L (12-20) BUN 5 L (9-16) mg/dL Creatinine 0.64 (0.5-1.4) mg/dL Estim Creat Clear Calc 131.1 Estimated GFR > 60 Random Glucose 118 H (60-115) mg/dL Calcium 8.5 (8.4-10.2) mg/dL Magnesium 1.8 (1.6-2.6) mg/dL Total Bilirubin 0.3 (0.0-1.0) mg/dL AST 22 (5-31) U/L ALT 16 (0-31) U/L Alkaline Phosphatase 61 (39-117) U/L Total Protein 6.5 (6.5-8.0) g/dL Albumin 3.1 L D (3.5-5.0) g/dL Beta HCG, Quant 49399 mIU/mL Influenza Type A (PCR) NEGATIVE (Negative) Influenza Type B (PCR) NEGATIVE (Negative) RSV RNA Qual (PCR) NEGATIVE (Negative) SARS-CoV-2 RNA (RT-PCR) POSITIVE A (Negative) <Brenda Martinez MD - Last Filed: 02/01/22 04:45> Discharge Plan Discharge Clinical Impression: COVID-19, , Dehydration <LUIS Bryant - Last Filed: 01/31/22 21:13> Patient Disposition: Home, Self-Care <LUIS Bryant - Last Filed: 01/31/22 21:13> Instructions: Dehydration (ED) <LUIS Bryant - Last Filed: 01/31/22 21:13> Additional Instructions: Drink plenty of fluid and follow-up with your OBGYN doctor return to the ED if symptoms is not improving. <LUIS Bryant - Last Filed: 01/31/22 21:13> Prescriptions: No Action nitrofurantoin monohyd/m-cryst [Macrobid] 100 mg capsule 100 mg PO Q12H 7 Days Qty: 14 0RF Rx Instructions: must administer with a meal/food nitrofurantoin monohyd/m-cryst [Macrobid] 100 mg capsule 100 mg PO BID 7 Days Qty: 14 0RF Rx Instructions: must administer with a meal/food cephalexin 500 mg capsule 500 mg PO BID Qty: 20 0RF <LUIS Bryant - Last Filed: 01/31/22 21:13>
[2022-01-31 21:38] LABS: MANUAL DIFF FLAG NO
[2022-01-31 21:41] LABS: Basophils Percent Auto 0.2 % (0-2); Eosinophils Percent Auto 0.2 % (0-4); Hematocrit 35.2 % (37.0-47.0); Hemoglobin 11.9 g/dl (12.0-16.0); Imm Gran Abs Auto 0.01 X10*3/uL (0.00-0.03); Imm Gran Pct Auto 0.2 % (0.0-0.4); Lymphocytes Absolute Auto 0.9 X10*3/uL (1.2-4.9); Lymphocytes Percent Auto 16.8 % (20-40); Mean Corpuscular HGB Conc 33.8 g/dl (31.0-35.0); Mean Corpuscular Volume 91.7 fL (80.0-98.0); Monocytes Absolute Auto 0.4 X10*3/uL (0.1-1.2); Neutrophils Percent Auto 74.6 % (45-73); Platelet Count 210 X10*3/uL (160-400); Red Blood Count 3.84 X10*6/uL (4.20-5.50); Red Cell Distribution Width 12.4 % (11.0-16.0); White Blood Count 5.4 X10*3/uL (4.8-10.8)
[2022-01-31 21:54] LABS: Alanine Aminotransferase 16 U/L (0-31); Albumin Level 3.1 g/dL (3.5-5.0); Alkaline Phosphatase 61 U/L (39-117); Anion Gap 10 (12-20); Aspartate Amino Transferase 22 U/L (5-31); Bilirubin Total 0.3 mg/dL (0.0-1.0); Blood Urea Nitrogen 5 mg/dL (9-16); Calcium 8.5 mg/dL (8.4-10.2); Carbon Dioxide 23 mmol/L (22-29); Chloride 108 mmol/L (96-108); Creatinine Clr Calc Pharmacy 131.1; Estimated Glomerular Filt Rate > 60; Glucose Random 118 mg/dL (60-115); Magnesium 1.8 mg/dL (1.6-2.6); Potassium 3.8 mmol/L (3.3-5.1); Sodium 137 mmol/L (135-145); Total Protein 6.5 g/dL (6.5-8.0)
[2022-01-31 22:21] LABS: HCG Quantitative 24124 mIU/mL
[2022-01-31 22:21] LABS: Influenza A PCR NEGATIVE (Negative); Influenza B PCR NEGATIVE (Negative); Resp Syncy Virus RNA Qual PCR NEGATIVE (Negative); SARS COV2 PCR INHOUSE POSITIVE (Negative)
[2022-02-01 00:29] VITALS: BP 118/62; PULSE 62; RESP 18; TEMP 36.7; O2SAT 100
--- NOTE | 2022-02-01 01:53 | PC.NURSE ---
pt brought in from the waiting room. This RN used doppler to obtain HR of 164. Pt reports feeling some abdominal cramping at this time
[2022-02-01] MEDS: 0.9 % Sodium Chloride 1,000 ML 999 ML IV ×2 (02:39→04:53)
[2022-02-01] MEDS: ondansetron HCL 4 MG/2 ML VIAL IVPUSH (02:39)
[2022-02-01 03:15] VITALS: BP 111/60; PULSE 60; RESP 18; TEMP 36.8; O2SAT 98
[2022-02-01 04:59] VITALS: BP 100/50; PULSE 71; RESP 17; TEMP 36.3; O2SAT 99
== END 2022-02-01 06:37 | disposition home or self-care (01) ==
PROVIDERS: Physician Assistant; Emergency Provider Emergency Medicine
DX: O98.513 Other viral diseases complicating pregnancy, third trimester (principal); U07.1 COVID-19; Z3A.28 28 weeks gestation of pregnancy; R11.2 Nausea with vomiting, unspecified; E86.0 Dehydration; Z79.899 Other long term (current) drug therapy
CPT/HCPCS: 0241U; 80053; 83735; 84702; 85025; 96361; 96374; 99284; J2405

== ENCOUNTER 2024-01-31 15:30 | Emergency (ER) | payer MEDICAID, SELFPAY ==
[2024-01-31 16:17] VITALS: BP 108/45; PULSE 84; RESP 18; TEMP 36.7; O2SAT 98; BMI 39.7
[2024-01-31 16:48] LABS: IDNOW Serial# 08D9AD1C; Strep A Nucleic Acid Positive (Negative)
--- NOTE | 2024-01-31 17:00 | ED.GENADULT ---
HPI - General Adult General Chief complaint: Upper Respiratory Symptoms Stated complaint: sore throat ? strep Time Seen by Provider: 01/31/24 16:55 Source: patient, RN notes reviewed and old records reviewed Mode of arrival: ambulatory Limitations: no limitations History of Present Illness ED Provider: Brianna ALLEN narrative: 28-year-old female presents for evaluation of a sore throat. She has had pain for the last week and a half. She had some respiratory symptoms previously that have since resolved. She no longer has any cough or shortness of breath. She reports painful swallowing. Her left side of her throat hurts more so than the right. Her pain is worse with brushing her teeth Related Data Previous Rx's ?Medication ?Instructions ?Recorded nitrofurantoin 100 mg PO Q12H 7 days #14 caps 08/14/21 monohydrate/macrocrystals 100 mg capsule (Macrobid) nitrofurantoin 100 mg PO BID 7 days #14 caps 11/10/21 monohydrate/macrocrystals 100 mg capsule (Macrobid) cephalexin 500 mg capsule 500 mg PO BID #20 caps 01/25/22 clindamycin HCl 300 mg capsule 300 mg PO TID #30 caps 01/31/24 dexamethasone 4 mg tablet 4 mg PO BID #4 tabs 01/31/24 Allergies Allergy/AdvReac Type Severity Reaction Status Date / Time penicillin V Allergy Unknown Unknown Verified 01/31/24 16:18 Penicillins [PENICILLINS] Allergy Unknown HIVES Verified 01/31/24 16:18 Sulfa (Sulfonamide Allergy Unknown UNKNOWN Verified 01/31/24 16:18 Antibiotics) [SULFA (SULFONAMIDE ANTIBIOTICS)] COD FISH Allergy Unknown RASH Uncoded 11/06/21 14:40 Review of Systems Constitutional: Constitutional: Denies body ache(s), Denies chills and Denies fever(s) Eyes: Eyes: Denies blurry vision and Denies exophthalmos ENT: Denies dizziness, Denies dry mouth and Reports sore throat Cardiovascular: Cardiovascular: Denies chest pain and Denies dyspnea Respiratory: Respiratory: Denies cough and Denies dyspnea Gastrointestinal: Gastrointestinal: Denies abdominal pain, Denies nausea and Denies vomiting Musculoskeletal: Musculoskeletal: Denies back pain Integumentary/Breasts: Skin/Breast: Denies rash Neurologic: Denies dizziness [facility] Social History Social History Alcohol intake: never Advance Directives: No Advance Directives Information Provided: No Physical Exam ED Vital Signs: Vital Signs - 24 hr 01/31/24 16:17 Temperature 98.0 F Pulse Rate 84 Respiratory Rate 18 Blood Pressure 108/45 L Pulse Oximetry 98 Oxygen Delivery Method Room Air BMI result Body Mass Index 39.7 Const General: healthy appearing, comfortable, no acute distress, alert and awake Nutritional Appearance: well nourished Orientation/consciousness: patient oriented x3 HENMT Other: Erythematous retropharynx with bilateral tonsillar hypertrophy, left greater than right. There was no evidence of peritonsillar abscess. No anterior neck edema Head: Yes normocephalic and Yes atraumatic Eyes Eyelids: Yes eyelids normal Conjunctivae: conjunctivae normal Sclerae: sclerae normal Corneas: corneas normal Pupils: Equal, round and reactive pupils present EOM: EOMs intact bilaterally Neck Neck: Yes full ROM Resp Effort & Inspection: normal respiratory effort, able to speak in complete sentences and not labored Skin General skin exam: elasticity normal Neuro General: patient oriented x3 Cranial nerves: Yes Equal, round and reactive pupils present and Yes Bilaterally intact EOM present Cognition (Neuro): normal cognition Extrem Other: Moving all extremities well without any obvious deformities Medical Decision Making Medical Decision Making MDM Narrative: 28-year-old female presents for evaluation of a sore throat. She tested positive for strep pharyngitis. She has some tonsillar hypertrophy but no evidence of abscess. Given her tonsillar hypertrophy and exudates we will treat with dexamethasone b.i.d. x2 days to help with symptom control. We will treat with clindamycin due to penicillin allergy Differential Diagnosis Differential Diagnoses: The differential diagnosis associated with the presentation includes Strep pharyngitis Upper respiratory infection Viral syndrome COVID-19 Peritonsillar abscess Lab Data Labs: Lab Results 01/31/24 Range/Units 16:37 S. pyogenes GrpA ANUPAMA Positive A (Negative) Discharge Plan Discharge Clinical Impression: Acute streptococcal pharyngitis Patient Disposition: Home, Self-Care Instructions: Strep Throat (ED) Additional Instructions: Take clindamycin 3 times daily for the next 10 days. Use ibuprofen/Tylenol for pain. You may also use Chloraseptic spray or magic mouthwash to help with the pain Follow-up with your primary doctor, return for new or worsening symptoms Prescriptions: New clindamycin HCl 300 mg capsule 300 mg PO TID Qty: 30 0RF dexamethasone 4 mg tablet 4 mg PO BID Qty: 4 0RF No Action nitrofurantoin monohyd/m-cryst [Macrobid] 100 mg capsule 100 mg PO Q12H 7 Days Qty: 14 0RF Rx Instructions: must administer with a meal/food nitrofurantoin monohyd/m-cryst [Macrobid] 100 mg capsule 100 mg PO BID 7 Days Qty: 14 0RF Rx Instructions: must administer with a meal/food cephalexin 500 mg capsule 500 mg PO BID Qty: 20 0RF Print Language: Tamazight
[2024-01-31 17:41] VITALS: BP 108/45; PULSE 84; RESP 18; TEMP 36.7; O2SAT 98
== END 2024-01-31 17:41 | disposition home or self-care (01) ==
PROVIDERS: Emergency Provider Emergency Medicine
DX: J02.0 Streptococcal pharyngitis (principal)
CPT/HCPCS: 87651; 99282; 99283

== ENCOUNTER 2025-01-04 17:51 | Emergency (ER) | payer MEDICAID, SELFPAY ==
[2025-01-04 18:22] VITALS: BP 115/57; PULSE 77; RESP 18; TEMP 36.2; O2SAT 98; BMI 38.7
--- NOTE | 2025-01-04 18:23 | ED.GENADULT ---
HPI - General Adult General Chief complaint: Ear Problems Stated complaint: ear infection Time Seen by Provider: 01/04/25 22:38 Source: patient Mode of arrival: ambulatory Limitations: no limitations History of Present Illness ED Provider: Celestino SMITH HPI narrative: Patient is a 29-year-old female presents to the Emergency Department with recurrent right ear pain that has been occurring intermittently for approximately one year. The pain is associated with a sensation of muffled hearing and decreased auditory acuity in the affected ear. She reports that prior episodes were treated with oral antibiotics and ear drops; symptoms would improve but later recur. Her most recent antibiotic course was ?a couple of months ago , prescribed by [facility]. She denies measured fever and has not noticed fevers today. No current vomiting. She recalls having a sore throat during the last episode but not today. Patient reports using a liquid ear flush device, which provided no relief. The patient denies associated clear or bloody otorrhea. The patient has not taken any medications for her symptoms these past few days. The patient reports she has not been referred to ENT despite her multiple episodes of ear discomfort. Related Data Previous Rx's ?Medication ?Instructions ?Recorded nitrofurantoin 100 mg PO Q12H 7 days #14 caps 08/14/21 monohydrate/macrocrystals 100 mg capsule (Macrobid) nitrofurantoin 100 mg PO BID 7 days #14 caps 11/10/21 monohydrate/macrocrystals 100 mg capsule (Macrobid) cephalexin 500 mg capsule 500 mg PO BID #20 caps 01/25/22 clindamycin HCl 300 mg capsule 300 mg PO TID #30 caps 01/31/24 dexamethasone 4 mg tablet 4 mg PO BID #4 tabs 01/31/24 acetaminophen 500 mg capsule 1,000 mg (2 x 500 mg) PO .q8 PRN 01/04/25 fever or pain #30 caps ibuprofen 600 mg tablet 600 mg PO Q8H PRN fever or pain 01/04/25 #30 tabs prednisone 20 mg tablet 60 mg (3 x 20 mg) PO DAILY 5 days 01/04/25 #15 tabs Allergies Allergy/AdvReac Type Severity Reaction Status Date / Time penicillin V Allergy Unknown Unknown Verified 01/04/25 18:22 Penicillins (PENICILLINS) Allergy Unknown HIVES Verified 01/04/25 18:22 Sulfa (Sulfonamide Allergy Unknown UNKNOWN Verified 01/04/25 18:22 Antibiotics) (SULFA (SULFONAMIDE ANTIBIOTICS)) COD FISH Allergy Unknown RASH Uncoded 11/06/21 14:40 Review of Systems Review of Systems: Yes all other systems are reviewed and are negative PMFSH Social History Social History Alcohol intake: never Smoked in Last 30 Days: No Use of substances other than those prescribed or required for medical reasons: No Advance Directives: No Advance Directives Information Provided: No Patient : No Physical Exam ED Vital Signs: Vital Signs - 24 hr 01/04/25 18:22 01/04/25 23:50 01/04/25 23:54 Temperature 97.1 F 98.0 F 98.0 F Pulse Rate 77 74 74 Respiratory Rate 18 20 20 Blood Pressure 115/57 L 104/50 L 104/50 L Pulse Oximetry 98 98 98 Oxygen Delivery Method Room Air Room Air Room Air BMI result Body Mass Index 38.7 CONSTITUTIONAL: The patient appears non-toxic, well nourished and in no acute distress. Vital signs as documented. HEAD: Atraumatic, normocephalic. EYES: EOMs grossly intact, pupils equal, conjunctiva clear, no exudate. ENT: Nares patent, no discharge. Airway patent, no audible stridor, visible mucosa is pink and moist without noted lesions. Posterior pharynx is unremarkable, midline nonedematous uvula, no tonsillar exudate, no tonsillar or peritonsillar swelling. No trismus. The patient's left ear is unremarkable, right ear canal is unremarkable, right TM is intact but shows bulging with serous fluid, no erythema or purulence noted. NECK: trachea is midline, no obvious masses or gross abnormalities. CHEST: Symmetric movement, normal appearance. LUNGS: Non-labored work of breathing. CARDIAC: No evidence of hypoperfusion. ABDOMEN: Nondistended, no obvious injury. : Deferred. EXTREMITIES: Moves all extremities spontaneously without reported pain. No obvious injury or deformity noted. NEURO: Alert and oriented x3, CN II-XII appear grossly intact. Cerebellar Functioning grossly intact. Speech clear and appropriate. SKIN: Warm, dry, color appropriate. No rashes or lesions noted. Course Course Course Narrative: Medical screening exam performed. Please refer to detailed history, exam, evaluation, and management by primary provider. Right ear pain, acute on chronic multiple visits at other hospitals. Has not seen ENT. He reports placing numbing medication in the right ear in addition to flushing it. Increased pain for the past 3 days. Limited view in right auditory canal, unable to visualize TM. Medications Administered Discontinued Medications Generic Name Dose Route Start Last Admin Trade Name Andrew PRN Reason Stop Dose Admin Acetaminophen 975 mg 01/04/25 23:34 01/04/25 23:45 Acetaminophen 325 Mg Tablet PO 01/04/25 23:35 975 mg ONCE ONE Administration Ibuprofen 600 mg 01/04/25 23:34 01/04/25 23:45 Ibuprofen 600 Mg Tablet PO 01/04/25 23:35 600 mg ONCE ONE Administration Prednisone 60 mg 01/04/25 23:34 01/04/25 23:44 Prednisone 20 Mg Tablet PO 01/04/25 23:35 60 mg ONCE ONE Administration Medical Decision Making Medical Decision Making MDM Narrative: 11:41 PM 01/04/2025 (Tri SMITH): Patient is a 29-year-old female presents to the Emergency Department with recurrent right ear pain that has been occurring intermittently for approximately one year. The pain is associated with a sensation of muffled hearing and decreased auditory acuity in the affected ear. She reports that prior episodes were treated with oral antibiotics and ear drops; symptoms would improve but later recur. Her most recent antibiotic course was ?a couple of months ago , prescribed by [facility]. She denies measured fever and has not noticed fevers today. No current vomiting. She recalls having a sore throat during the last episode but not today. Patient reports using a liquid ear flush device, which provided no relief. The patient denies associated clear or bloody otorrhea. The patient has not taken any medications for her symptoms these past few days. The patient reports she has not been referred to ENT despite her multiple episodes of ear discomfort. On exam patient is posterior pharynx is unremarkable, midline nonedematous uvula, no tonsillar exudate, no tonsillar or peritonsillar swelling. No trismus. The patient's left ear is unremarkable, right ear canal is unremarkable, right TM shows bulging with serous fluid, no erythema or purulence noted. The patient is likely suffering from recurrent serous otitis media, patient is afebrile without evidence of infectious process, no indication for antibiotics at this time. The patient will be treated instead with prednisone, Motrin, and Tylenol. Patient will be provided ENT referral. Admission/Observation Consideration of admission/observation: Escalation of care including admission/observation considered External Record Review External record reviewed: Outpatient record Prescription Management I considered prescription management with: Pain Medication and Antibiotic Discharge Plan Discharge Clinical Impression: Acute serous otitis media of right ear Patient Disposition: Home, Self-Care Instructions: Fluid In The Ear (Serous Otitis Media) (ED) Additional Instructions: Thank you for choosing [facility]'s Emergency Department for your care today. Thankfully your exam today shows only fluid behind your ear, there was no redness or other evidence of an active bacterial infection. At this time there is no indication for admission to the hospital or continued ED observation, and it is safe to discharge you home. Your presentation is consistent with a condition known as serous otitis media, which is a collection of fluid behind your eardrum which may be due to inflammation of your Eustachian tube. There is no indication for antibiotics at this time. Instead it is recommended that you treat the inflammation and this should hopefully resolve your ear pain and decreased hearing. You should take alternating (staggered) doses of ibuprofen 600mg and Tylenol 1000mg every 4 hours for the next 2-3 days and then as needed for any additional pain. Please also take 60 mg of prednisone daily for the next 5 days. Given the recurrent nature of your ear complaints, it is important to have you follow up with our ENT office. Please contact the ENT office by calling the provided number tomorrow to schedule an appointment for follow up. Please also follow up with your primary care physician for re-evaluation, additional management of your symptoms, and continued preventative care. If you do not have a primary care physician, please call the [facility] at [phone] to establish a new primary care physician. While waiting to establish your new primary care physician, you can call our [facility] at [phone] for non-emergency needs. Please return to the emergency department if you develop a severe or sudden change in your symptoms, a fever over 100.4 that does not improve with Tylenol or Ibuprofen, recurrent vomiting, or any other new or worsening symptoms or concerns. Prescriptions: New prednisone 20 mg tablet 60 mg PO DAILY 5 Days Qty: 15 0RF ibuprofen 600 mg tablet 600 mg PO Q8H PRN (Reason: fever or pain) Qty: 30 0RF acetaminophen 500 mg capsule 1,000 mg PO .q8 PRN (Reason: fever or pain) Qty: 30 0RF No Action nitrofurantoin monohyd/m-cryst [Macrobid] 100 mg capsule 100 mg PO Q12H 7 Days Qty: 14 0RF Rx Instructions: must administer with a meal/food nitrofurantoin monohyd/m-cryst [Macrobid] 100 mg capsule 100 mg PO BID 7 Days Qty: 14 0RF Rx Instructions: must administer with a meal/food cephalexin 500 mg capsule 500 mg PO BID Qty: 20 0RF clindamycin HCl 300 mg capsule 300 mg PO TID Qty: 30 0RF dexamethasone 4 mg tablet 4 mg PO BID Qty: 4 0RF [place] [facility] [place]] Clinical Impression: [facility] Clinical Impression: Acute serous otitis media of right ear Interventions: ED Discharge Assessment Last Done: 01/04/25 23:54 Discharge Date/Time: 01/04/25 23:55 Print Language: Greenlandic
--- OUTSIDE RECORDS SUMMARY | 2025-01-04 22:49 | XMS_ITS | Clinical Summary ---
Author Organization [facility] it Address [address] [place] [address] Care Team Providers Care Crane Hoist Or Lift Operator Name Role Phone Lázaro Porras MD Primary Care Provider Allergies Active Allergy Reactions Criticality Noted Date Comments Penicillin G Hives 10/03/2017 Sulfa (Sulfonamide Antibiotics) Hives 09/06 Medications metroNIDAZOLE (METROGEL) 0.75 % (37.5mg/5 gram) vaginal gel Insert 1 Applicatorful into the vagina at bedtime. x 5 nights 3 Active vit 75/iron/folic/ om3 (DAILY ORAL) Take 2 tablets by mouth 1 (one) time each day. 3 Active blood-glucose meter kit 1 kit by Not Applicable route 3 (three) times a week. Take blood sugar 4 times a day; Fasting , and 1 hour after breakfast, lunch and dinner. - 3 Active FREESTYLE LANCETS MISC 150 Sticks by Not Applicable route 4 (four) times a day (with meals and nightly). Test blood glucose 1 hour after breakfast, lunch and dinner 3 Active blood sugar diagnostic (FreeStyle Lite Strips) test strip 1 each by Other route 4 (four) times a day. 3 Active docusate sodium (COLACE) 100 mg capsule Take 1 capsule (100 mg total) by mouth 1 (one) time each day. 3 Active methadone HCl (METHADONE ORAL) Take by mouth. 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 Maternal varicella, non-immune 02/20/2022 Overview (02/10/2024): Offer pp vaccine Immunizations Immunization Administration Dates Next Due Tdap Tetanus diptheria acell ular pertussis (Boostrix; Adacel) 7yo and older 01/05/2022 Surgical History Surgery Date Site/Laterality Comments ABDOMINAL SURGERY PROCEDURE: HISTORICAL ABDOMINAL SURGERY; COMMENT: exploratory surgery as a child for intestine Medical History Medical History Date Comments History of depression DX:History of depression History of drug abuse in rem ission ([facility] V24, [facility] V28) DX:History of drug abuse in remission ([facility]); COMMENT: on methadone maintainance. History of alcohol abuse DX:Hist ory of alcohol abuse Methadone maintenance treatm ent affecting ([facility] V24, [facility] V28) 11/16/2021 DX:Methadone maintenance carlos atment affecting ([facility]); COMMENT: 01/05/2022 going to [facility] in [place] dose 150 Mg. Growth US Q 4 weeks Weekly testing at 32 weeks Plan by pain management clinic in chart for pain at 36 weeks --Should be listed under the problem list where the patient goes and someone should contact at IP and on admission to [facility] for confirmation of dosing Q trimeste* Family History Medical History Relation Name Comments Other: prediabetic Brother No Known Problems Father No Known Problems Maternal Grandfather No Known Problems Maternal Grandmother Blindness Mother Diabetes Mother Other: 1 kidney, BTK amputation, HBP, Mother No Known Problems Paternal Grandfather No Known Problems Paternal Grandmother Other: prediabetic Sister No Known Problems Son Relation Name Status Comments Brother Alive Father Alive Maternal Grandfather Maternal Grandmother Mother Alive Paternal Grandfather Paternal Grandmother Alive Sister Alive Son Alive Social History Tobacco Use Types Packs/Day Years Used Date Smoking Tobacco: Light Smoker Smokeless Tobacco: Never Alcohol Use Standard Drinks/Week Comments Not Currently 0 (1 standard drink = 0.6 oz pur e alcohol) Comments Unknown Sex and Gender Information Value Date Recorded Sex Assigned at Not on file Legal Sex Female 6:48 AM EST Gender Identity Not on file Sexual Orientation Not on file Obstetrics History Last Filed Vital Signs Vital Sign Reading Time Taken Comments Blood Pressure 112/72 05/03/2022 3:13 PM EDT Pulse 79 05/03/2022 3:13 PM EDT Temperature - - Respiratory Rate - - Oxygen Saturation - - Inhaled Oxygen Concentration - - Weight 92.1 kg (203 lb) 05/03/2022 3:13 PM EDT Height 157.5 cm (5' 2 ) 03/02/2022 11:41 AM EST Body Mass Index 37.13 03/02/2022 11:41 AM EST Plan of Treatment Health Maintenance Due Date Last Done Comments Hepatitis B Vaccines (1 of 3 - 19+ 3-dose series) 07/16/2015 Pneumococcal Vaccine: Pediatrics (0 to 5 Years) and At-Risk Patients (6 to 49 Years) (1 of 2 - PCV) 07/16/2015 Social Influencers of Health Screening 01/08/2022 HPV Vaccines (1 - 3-dose SCD M series) 07/16/2023 Depression Screening 02/06/2024 COVID-19 Vaccine (4 - 2024-2 6 season) 2024 06/15/2021, 04/02/2020, 02/26/2020 Influenza Vaccine (#1) 2024 Cervical Cancer Screening: P ap Smear 01/11/2025 01/11/2022, 01/05/2022 DTaP,Tdap,and Td Vaccines (2 - Td or Tdap) 01/06/2032 01/05/2022 RSV Immunization Adult Patients (1 - 1-dose 75+ series) 07/16/2071 HIV Screening Completed 02/16/2022, 07/22/2021 Hepatitis C Screening Completed 02/16/2022 HIB Vaccines Aged Out No longer eligi ble based on patient's age to complete this topic Hepatitis A Vaccines Aged Out No long er eligible based on patient's age to complete this topic IPV Vaccines Aged Out No longer eligi ble based on patient's age to complete this topic MMR Vaccines Aged Out No longer eligi ble based on patient's age to complete this topic Meningococcal ACWY Vaccine Aged Out N o longer eligible based on patient's age to complete this topic Meningococcal B Vaccine Aged Out No l onger eligible based on patient's age to complete this topic RSV Immunization Patients Under 20 months Aged Out No longer eligible b ased on patient's age to complete this topic Varicella Vaccines Aged Out No longer eligible based on patient's age to complete this topic Procedures Procedure Name Priority Date/Time Associated Diagnosis Comments HEPATITIS C SCREENING Routine 02/16/2022 HIV SCREENING Routine 02/16/2022 PAP SMEAR Routine 01/11/2022 from Last 3 Months or Most Recently Relevant to Health Maintenance Results * HIV Screening (02/16/2022) HIV Screening abstracted Historical Provider HEALTH MAINTENANCE Final Result * Hepatitis C Screening (02/16/2022) Hepatitis C Screening abstracted [facility] Provider HEALTH MAINTENANCE Final Result * Pap Smear (01/11/2022) Pap smear negative, abstracted Historical Provider HEALTH MAINTENANCE Final Result from Last 3 Months or Most Recently Relevant to Health Maintenance Care Teams Crane Hoist Or Lift Operator Relationship Specialty Start Date End Date Lázaro Porras MD [address] [place] [address] PCP - General 01/18/22
--- OUTSIDE RECORDS SUMMARY | 2025-01-04 22:49 | XMS_ITS | Clinical Summary ---
Author Organization [facility] Address [address] [place] [address] Care Team Providers Care De Ionizer Operator Name Role Phone Unavailable Primary Care Provider Unavailabl e Social History Tobacco Use Types Packs/Day Years Used Date Smoking Tobacco: Never Assessed Sex and Gender Information Value Date Recorded Sex Assigned at Not on file Gender Identity Not on file Sexual Orientation Not on file Job Start Date Occupation Industry Not on file Not on file Not on file Plan of Treatment Not on file
--- OUTSIDE RECORDS SUMMARY | 2025-01-04 22:49 | XMS_ITS ---
Author Name [facility] Organization Unknown Care Team Organization Name Specialty Phone Email Start Date End Da te [facility] EDILMA CHIN Primary Care 07/14/2022 09/24/2023 [facility] Genie Gutierrez DO Primary Care 12/13/202109/05
--- OUTSIDE RECORDS SUMMARY | 2025-01-04 22:49 | XMS_ITS | Encounter Summary ---
Author Organization [facility] Address [address] [place] [phone] Phone Care Team Providers Care Clinical Rn Liaison Name Role Phone Seema Rodriguez MD Primary Care Provider Unavailabl e Encounter Details Date Type Department Care Team (Late st Contact Info) Description 12/07/2016 Conversion Encounter [facility] - [address] [phone] Social History Tobacco Use Types Packs/Day Years Used Date Smoking Tobacco: Never Assessed Comments Unknown Sex and Gender Information Value Date Recorded Sex Assigned at Not on file Legal Sex Female 4:14 PM EDT Gender Identity Not on file Sexual Orientation Not on file documented as of this encounter Plan of Treatment Not on file documented as of this encounter Visit Diagnoses Not on filedocumented in this encounter Care Teams Clinical Rn Liaison Relationship Specialty Start Date End Date Seema Rodriguez MD PCP - General 09/15/16 documented as of this encounter
--- OUTSIDE RECORDS SUMMARY | 2025-01-04 22:49 | XMS_ITS | Clinical Summary ---
Author Organization [facility] Address [address] [place] [phone] Phone Care Team Providers Care Scale Expert Name Role Phone Seema Rodriguez MD Primary Care Provider Unavailabl e Social History Tobacco Use Types Packs/Day Years Used Date Smoking Tobacco: Never Assessed Comments Unknown Sex and Gender Information Value Date Recorded Sex Assigned at Not on file Legal Sex Female 4:14 PM EDT Gender Identity Not on file Sexual Orientation Not on file Plan of Treatment Health Maintenance Due Date Last Done Comments MMR Vaccines (1 of 1 - Stand sherrill series) 1997 Varicella Vaccines (1 of 2 - 13+ 2-dose series) 2009 DTaP,Tdap,and Td Vaccines (1 - Tdap) 2014 Hepatitis B Vaccines (1 of 3 - 19+ 3-dose series) 07/16/2015 HPV Vaccines (1 - 3-dose SCD M series) 07/16/2023 Influenza Vaccines (#1) 2024 COVID-19 Vaccine ( - 2024-2 6 season) 2024 HIB Vaccines Aged Out No longer eligi ble based on patient's age to complete this topic Hepatitis A Vaccines Aged Out No long er eligible based on patient's age to complete this topic IPV Vaccines Aged Out No longer eligi ble based on patient's age to complete this topic Men B Vaccine Aged Out No longer elig ible based on patient's age to complete this topic Meningococcal Vaccine Aged Out No vilma ruslan eligible based on patient's age to complete this topic Pneumococcal Vaccine Aged Out No long er eligible based on patient's age to complete this topic Care Teams Scale Expert Relationship Specialty Start Date End Date Seema Rodriguez MD PCP - General 09/15/16
--- OUTSIDE RECORDS SUMMARY | 2025-01-04 22:50 | XMS_ITS | Clinical Summary ---
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 Name Role Phone Unavailable Primary Care Provider Unavailabl e Allergies Active Allergy Reactions Criticality Noted Date Comments Amoxicillin Rash Low 05/10/2011 Ciprofloxacin Anxiety Low 02/18/2016 Fish Oil 11/21/2024 Other 11/21/2024 Cod Fish Penicillins Hives,Rash Low 10/03/2017 Sulfa Antibiotics Hives 10/03/2017 Sulfadiazine 11/21/2024 Active Problems Problem Noted Date Diagnosed Date ADHD 11/21/2024 Anxiety 11/21/2024 Depression 11/21/2024 GERD (gastroesophageal reflux disease) History of anxiety state 11/21/2024 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 Severe obesity ([facility]) 11/21/2024 Maternal varicella, non-immune 02/20/2022 Overview (11/21/2024): Offer pp vaccine Overweight 05/12/2015 Insomnia 04/09/2014 Acne 12/29/2013 Constipation 12/29/2013 Encounters Date Type Department Care Team Description 11/24/2024 Telephone [facility] [address] [place], [place] [phone] Alen Mc MD No Show 11/21/2024 Telephone [facility] [address] [place], [place] [phone] Brenna Guidry FNP chart prep 11/17/2024 Patient Outreach [facility] [address] [place], [place] [phone] Brenna Guidry FNP Pre-visit Planning (SDOH unable to reach [facility] ) from Last 3 Months Immunizations Immunization Administration Dates Next Due DTaP 07/02/2001, 9,06/19/1997,02/06,1996 HPV, Quadrivalent 09/19/2007,07/04/2006,05/04/19 07 Hep B, Adolescent or Pediatric 06/19/1997,1996,1996 Hib (HbOC) 08/10/1998, 8,02/06/1997,09/17 IPV 07/02/2001, 9,06/19/1997,09/18 Influenza injectable quadriv alent preservative free 10/23/2019 Influenza, IIV3, injectable 03/05/2018, 3 MMR 07/02/2001,10/13/1997 Meningococcal MCV4P [id number]-[id number] 09/24/2008 Tdap 01/05/2022,04/15/2018,09/24/2008 Varicella 03/18/2022,10/13/1997 Social History Tobacco Use Types Packs/Day Years Used Date Smoking Tobacco: Never Assessed Comments Unknown Sex and Gender Information Value Date Recorded Sex Assigned at Female 12/05/2021 10:15 AM EDT Legal Sex Female 10:15 AM EDT Gender Identity Female 12/05/2021 10:15 AM EDT Sexual Orientation Straight 12/05/2021 10 :15 AM EDT Last Filed Vital Signs Vital Sign Reading Time Taken Comments Blood Pressure 99/65 07/20/2021 12:06 AM EDT Pulse 76 07/20/2021 12:06 AM EDT Temperature - - Respiratory Rate - - Oxygen Saturation - - Inhaled Oxygen Concentration - - Weight 79.1 kg (174 lb 6.4 oz) 07/20/2021 12:06 AM EDT Height 157.5 cm (5' 2 ) 07/20/2021 12:06 AM EDT Body Mass Index 31.9 07/20/2021 12:06 AM EDT Plan of Treatment Health Maintenance Due Date Last Done Comments Depression Screening 1996 Lipid Panel 1996 SDOH Screening 1996 Disability Screening 1996 Alcohol/Substance Use Screening 2008 Tobacco Screening 2008 Family Planning (PISQ) 07/16/2011 Pap Smear 2017 COVID-19 Vaccine ( season) 2024 08/19/2022, 06/15/2021, 04/02/2020, Additional history exists Influenza Vaccine (#1) 2024 , 03/05/2018, 11/11/2012 DTaP/Tdap/Td Vaccines (9 - Td or Tdap) 01/06/2032 01/05/2022, 04/15/2018, 09/24/2008, Additional history exists Zoster Vaccines (1 of 2) 2046 RSV Patients and Patients Aged 60 years or older (1 - 1-dose 75+ series) 07/16/2071 Hepatitis B Vaccines Completed 06/19/1997, 1996, 1996 HIB Vaccines Completed 08/10/1998, 06/05, 02/06/1997, Additional history exists IPV Vaccines Completed 07/02/2001, 07/1998, 06/19/1997, Additional history exists HPV Vaccines Completed 09/19/2007, 06/07, 05/03/2006 Meningococcal Vaccine Aged Out 09/24/2008 No vilma ruslan eligible based on patient's age to complete this topic HIV Screening Completed 07/22/2021 Hepatitis C Screening Completed 07/22/2021 Hepatitis A Vaccines Aged Out No long er eligible based on patient's age to complete this topic Meningococcal B Vaccine Aged Out No l onger eligible based on patient's age to complete this topic Pneumococcal Vaccine: Pediatrics (0 to 5 Years) and At-Risk Patients (6 to 49) Years Aged Out No longer eligible based on patient's age to complete this topic RSV under 20 months Aged Out No longe r eligible based on patient's age to complete this topic Rotavirus Vaccines Aged Out No longer eligible based on patient's age to complete this topic Procedures Procedure Name Priority Date/Time Associated Diagnosis Comments ZZZ HISTORICAL HEPATITIS C AB W/REFL TO HCV RNA, QN, PCR Routine 07/22/2021 3:33 PM EDT HIV 1/2 ANTIGEN/ANTIBODY, FOURTH GENERATION W/RFL Routine 07/22/2021 3:33 PM EDT from Last 3 Months or Most Recently Relevant to Health Maintenance Results * HEPATITIS C AB W/REFL TO HCV RNA, QN, PCR (07/22/2021 3:33 PM EDT) HEPATITIS C ANTIBODY NON-REACT PATRICIA NON-REACT PATRICIA [facility] INDEX <0.02 <1.00 [facility] Comment: HCV antibody was non-reactive. There is no laboratory evidence of HCV infection. In most cases, no further action is required. However, if recent HCV exposure is suspected, a test for HCV RNA (test code 65637) is suggested. For additional information please refer to http://[employer]/faq/KJC04g5 (This link is being provided for informational/ educational purposes only.) 07/22/2021 3:33 PM EDT us Roque Deleon MD HISTORICAL/NON ORDERABLE LABS Fi nal Result Performing Organization Address City/State/[facility] Co de Phone Number [facility] [address] * HIV 1/2 ANTIGEN/ANTIBODY,FOURTH GENERATION W/RFL (07/22/2021 3:33 PM EDT) HIV-1/2 ANTIGEN AND ANTIBODIES, 4TH GENERATION W/ REFLEX NON-REACT PATRICIA NON-REACT PTARICIA [facility] Comment: HIV-1 antigen and HIV-1/HIV-2 antibodies were not detected. There is no laboratory evidence of HIV infection. PLEASE NOTE: This information has been disclosed to you from records whose confidentiality may be protected by state law. If your state requires such protection, then the state law prohibits you from making any further disclosure of the information without the specific written consent of the person to whom it pertains, or as otherwise permitted by law. A general authorization for the release of medical or other information is NOT sufficient for this purpose. For additional information please refer to http://[employer]/faq/NVS043 (This link is being provided for informational/ educational purposes only.) The performance of this assay has not been clinically validated in patients less than 2 years old. 07/22/2021 3:33 PM EDT us Roque Deleon MD LAB BLOOD ORDERABLES Final Resul t [facility] [address] from Last 3 Months or Most Recently Relevant to Health Maintenance Insurance [address] [place], [place] [address] C[employer]
--- NOTE | 2025-01-04 23:19 | PC.NURSE ---
Took over care from SONNY Fang and RN Shanna, pt upset she been waiting to long, ran out of diapers for child, this RN supplied brief and diaper with wipes. Notified Provider, pt awaiting to be seen.
[2025-01-04 23:50] VITALS: BP 104/50; PULSE 74; RESP 20; TEMP 36.7; O2SAT 98
--- NOTE | 2025-01-04 23:52 | PC.NURSE ---
reviewed discharge instructions with pt, pt verbalized understanding, no sign of distress upon discharge, medicated mar.
[2025-01-04 23:54] VITALS: BP 104/50; PULSE 74; RESP 20; TEMP 36.7; O2SAT 98
== END 2025-01-04 23:55 | disposition home or self-care (01) ==
PROVIDERS: Emergency Provider Emergency Medicine Emergency Medical Services
DX: H65.01 Acute serous otitis media, right ear (principal)
CPT/HCPCS: 99283; 99284